=== PATIENT | female | born 1930 | race Caucasian/White ===

== ENCOUNTER 2017-09-24 20:47 | Emergency (ER) | payer OTHER, MEDICARE, MEDICAID ==
--- NOTE | 2017-09-24 20:59 | DR.GENAD ---
HPI - HPI Comment HPI Comment: HERE VIA EMS FOR AMS. PATIENT WAS WEAK AT HOME AND NOT TAKING MEDS. NO TRAUMA REPORTED. NO FEVER. NO V/D. HER DAUGHTER IS IN ED WITH PATIENT. - Complaint/Symptoms Chief Complaint Doctors Comments: ALTERED MENTAL STATUS. - Nurses notes reviewed Nurses Notes Review: Yes - Source History Provided: EMS - Mode of Arrival Mode of Arrival: Stretcher - Timing Came on: Suddenly - Duration Duration: Constant Duration: Hours - Severity Severity: Moderate ROS - Review of Systems Constitutional: No Symptoms Reported Eyes: No Symptoms Reported ENTM: No Symptoms Reported Respiratoy: No Symptoms Reported Cardiovascular: No Symptoms Reported Gastrointestinal/Abdominal: No Symptoms Reported Genitourinary: No Symptoms Reported Neurological: No Symptoms Reported Musculoskeletal: No Symptoms Reported Integumentary: No Symptoms Reported Hematologic/Lymphatic: No Symptoms Reported Endocrine: No Symptoms Reported All Other Systems: Reviewed and Negative PE - Vital Signs Vitals: Temperature 99.2 F Pulse Rate [Left Radial] 90 Pulse Rate 89 Respiratory Rate 18 Blood Pressure [Left Arm] 155/62 Blood Pressure 125/57 O2 Sat by Pulse Oximetry 97 - General Limitations: No Limitations General Appearance: Alert - Head Head Exam: Normal Inspection - Eyes Eye exam: Normal Appearance - ENT ENT Exam: Normal External Ear Exam External Ear Exam: Normal External Inspection TM/Canal Exam: Bilateral Normal Nose Exam: Normal Nose Exam Mouth Exam: Normal Inspection Throat Exam: Normal Inspection - Neck Neck Exam: Normal Inspection - Chest Chest Inspection: Symmetric Chest Wall Rise - Respiratory Respiratory Exam: Normal Lung Sounds Bilat Respiratory Exam: Bilateral Clear to Auscultation - Cardiovascular Cardiovascular Exam: Regular Rate, Normal Rhythm, Normal Heart Sounds - Abdominal Exam Abdominal Exam: Normal Bowel Sounds, Soft. negative: Tenderness - Extremities Extremities Exam: Normal Inspection - Back Back Exam: Normal Inspection - Neurologic Neurological Exam: Alert, Oriented X3 - Psychiatric Psychiatric Exam: Normal Affect, Normal Mood - Skin Skin Exam: Normal Color MDM - Additional Information Additional Information Obtained From: Family - Differential Diagnosis Differential Diagnosis: AMS, CVA, UTI, DEHYDRATION, AR, PNEUMOANIA Course - Treatment Treatment: SEE ORDERS. MENTAL STATUS IMPROVE WITH HYDRATION. - Education/Counseling Education/Counseling: Patient, Family, Education Educated On: Diagnosis, Needs for Follow Up ROR - Labs Reviewed Laboratory Results Reviewed?: Yes Result Diagrams: 09/24/17 21:27 09/24/17 21:27 Laboratory: WBC 8.3 X10^3/uL (3.6-10.0) 09/24/17 21: RBC 3.26 X10^6/uL (3.5-5.4) L 09/24/17 21: Hgb 10.4 g/dL (12.0-16.0) L 09/24/17 21: Hct 30.5 % (36.0-47.0) L 09/24/17: MCV 93.6 fL (80.0-100.0) 09/24/17: MCH 31.8 pg (27.0-34.0) 09/24/17: MCHC 33.9 g/dL (33.0-35.0) 09/24/17: RDW 14.3 % (11.6-16.5) 09/24/17: Plt Count 219 X10^3/uL (150.0-450.0) 09/24/17: MPV 7.8 fL (7.4-11.0) 09/24/17: Neut % 74.2 % (42.0-75.0) 09/24/17: Lymph % 14.7 % (21.0-51.0) L 09/24/17: Ritchie % 8.0 % (0.0-13.0) 09/24/17: Eos % 2.2 % (0.9-2.9) 09/24/17: Baso % 0.9 % (0.2-1.0) 09/24/17: Neut # 6.2 x10^3/uL (2.2-4.8) H 09/24/17: Lymph # 1.2 X10^3/uL (1.3-2.9) L 09/24/17: Ritchie # 0.7 x10^3/uL (0.3-0.8) 09/24/17 21: Eos # 0.2 x10^3/uL (0.0-0.2) 09/24/17 21: Baso # 0.1 X10^3/uL (0.0-0.1) 11/15/17 21:27 Absolute Nucleated RBC 0.0 /100WBC 09/24/17 21:27 Sodium 144 mmol/L (136-145) 09/24/17 21:27 Corrected Sodium 145 mmol/L (136-145) 09/24/17 21:27 Potassium 3.3 mmol/L (3.5-5.1) L 09/24/17 21:27 Chloride 107 mmol/L (98-107) 09/24/17 21:27 Carbon Dioxide 26.2 mmol/L (21-32) 09/24/17 21:27 BUN 20 mg/dL (7-18) H 09/24/17 21:27 Creatinine 1.84 mg/dL (0.55-1.02) H 09/24/17 21:27 Est GFR (MDRD) Af Amer 33 (>60) L 09/24/17 21:27 Est GFR (MDRD) Non-Af 28 (>60) L 09/24/17 21:27 Glucose 143 mg/dL (65-99) H 09/24/17 21:27 Calcium 9.0 mg/dL (8.5-10.1) 09/24/17 21:27 Corrected Calcium 9.7 mg/dL (8.5-10.1) 09/24/17 21:27 Total Bilirubin 0.30 mg/dL (0.2-1.0) 09/24/17 21:27 AST 14 Units/L (15-37) L 09/24/17 21:27 ALT 14 Units/L (12-78) 09/24/17 21:27 Alkaline Phosphatase 62 Units/L (46-116) 09/24/17 21:27 Creatine Kinase 47 Units/L (26-192) 09/24/17 21:27 CK-MB (CK-2) < 1.0 ng/mL (0-4.0) 09/24/17 21: CK/CKMB % Calc 2.1 % (<4) 09/24/17 21: Troponin I < 0.02 ng/mL (0-1.5) 09/24/17 21:27 Total Protein 6.5 g/dL (6.4-8.2) 09/24/17 21: Albumin 3.1 g/dL (3.4-5.0) L 09/24/17 21:27 Globulin 3.4 g/dL (2.5-4.5) 09/24/17 21: Albumin/Globulin Ratio 0.9 Ratio (1.1-2.1) L 09/24/17: Specimen Type Catherized urine 09/24/17 21:03 Urine Color Yellow (YELLOW) 09/24/17 21: Urine Appearance Slightly hazy (CLEAR) 09/24/17 21: Urine pH 5.0 (5.0 - 8.0) 09/24/17 21: Ur Specific [place] 1.020 (1.000-1.030) 09/24/17 21: Urine Protein 3+ (NEGATIVE) 09/24/17 21: Urine Glucose (UA) Negative (NEGATIVE) 09/24/17 21: Urine Ketones 1+ (NEGATIVE) 09/24/17 21: Urine Occult Blood 2+ (NEGATIVE) 09/24/17 21: Urine Nitrite Negative (NEGATIVE) 09/24/17 21: Urine Bilirubin 1+ (NEGATIVE) 09/24/17 21: Urine Urobilinogen 1+ (NORMAL) 09/24/17 21: Ur Leukocyte Esterase 1+ (NEGATIVE) 09/24/17 21: Urine RBC 2-4 /HPF (NEGATIVE) 09/24/17 21: Urine WBC 10-15 /HPF (NEGATIVE) 09/24/17 21: Ur Squamous Epith Cells Few /HPF (NEGATIVE) 09/24/17 21: Amorphous Sediment 1+ /HPF (NEGATIVE) 09/24/17 21: Urine Bacteria 1+ /HPF (NEGATIVE) 09/24/17 21: Ur Culture Indicated? Yes/culture set up 09/24/17 21: Urine Opiates Screen Negative (NEG=<300) 09/24/17 21: Urine Methadone Screen Negative (NEG=<300) 09/24/17 21: Ur Barbiturates Screen Negative (NEG=<200) 09/24/17 21: Ur Phencyclidine Scrn Negative (NEG=<25) 09/24/17 21: Ur Amphetamines Screen Negative (NEG=<1000) 09/24/17 21: U Benzodiazepines Scrn Positive (NEG=<200) A 09/24/17 21: Urine Cocaine Screen Negative (NEG=<300) 09/24/17 21:03 U Marijuana (THC) Screen Negative (NEG=<50) 09/24/17 21:03 - XRAY XRAY Interpreted by: Radiologist XRAY Findings: REPORT DISCUSS WITH DAUGHTER AND PATIENT. 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
[2017-09-24 21:11] VITALS: BMI 20.9
[2017-09-24 21:12] LABS: BILIRUBIN,URINE 1+ (NEGATIVE); BLOOD/HEMOGLOBIN,URINE 2+ (NEGATIVE); GLUCOSE, URINE NEGATIVE (NEGATIVE); KETONES,URINE 1+ (NEGATIVE); LEUKOCYTE ESTERASE ,URINE 1+ (NEGATIVE); NITRITES,URINE NEGATIVE (NEGATIVE); PROTEIN,URINE 3+ (NEGATIVE); UROBILINOGEN,URINE 1+ (NORMAL)
[2017-09-24 21:19] LABS: AMORPHOUS SEDIMENT,UR 1+ /HPF (NEGATIVE); APPEARANCE,URINE SLIGHTLY HAZY (CLEAR); BACTERIA,URINE 1+ /HPF (NEGATIVE); COLOR,URINE YELLOW (YELLOW); SQUAMOUS EPITHELIAL CELL,UR FEW /HPF (NEGATIVE)
[2017-09-24 21:36] LABS: BASOPHILS # (AUTO) 0.1 X10^3/uL (0.0-0.1); BASOPHILS % (AUTO) 0.9 % (0.2-1.0); EOSINOPHILS # (AUTO) 0.2 x10^3/uL (0.0-0.2); EOSINOPHILS % (AUTO) 2.2 % (0.9-2.9); HEMATOCRIT 30.5 % (36.0-47.0); HEMOGLOBIN 10.4 g/dL (12.0-16.0); LYMPHOCYTES # (AUTO) 1.2 X10^3/uL (1.3-2.9); LYMPHOCYTES % (AUTO) 14.7 % (21.0-51.0); MEAN CORPUSCULAR HEMOGLOBIN 31.8 pg (27.0-34.0); MEAN CORPUSCULAR HGB CONC 33.9 g/dL (33.0-35.0); MEAN CORPUSCULAR VOLUME 93.6 fL (80.0-100.0); MEAN PLATELET VOLUME 7.8 fL (7.4-11.0); MONOCYTES # (AUTO) 0.7 x10^3/uL (0.3-0.8); NEUTROPHILS # (AUTO) 6.2 x10^3/uL (2.2-4.8); NEUTROPHILS % (AUTO) 74.2 % (42.0-75.0); PLATELET COUNT 219 X10^3/uL (150.0-450.0); RED BLOOD COUNT 3.26 X10^6/uL (3.5-5.4); RED CELL DISTRIBUTION WIDTH 14.3 % (11.6-16.5); WHITE BLOOD COUNT 8.3 X10^3/uL (3.6-10.0)
[2017-09-24 21:53] LABS: BLOOD UREA NITROGEN 20 mg/dL (7-18); CARBON DIOXIDE 26.2 mmol/L (21-32); CHLORIDE 107 mmol/L (98-107); COR NA(FOR HYPERGLY) 145 mmol/L (136-145); CREATININE 1.84 mg/dL (0.55-1.02); SODIUM 144 mmol/L (136-145); TROPONIN I < 0.02 ng/mL (0-1.5); eGFR BLACK RACES 33 (>60); eGFR NON BLACK RACES 28 (>60)
[2017-09-24 21:58] LABS: ALANINE AMINOTRANSFERASE 14 Units/L (12-78); ALBUMIN 3.1 g/dL (3.4-5.0); ALKALINE PHOSPHATASE 62 Units/L (46-116); ASPARTATE AMINO TRANSFERASE 14 Units/L (15-37); CKMB % 2.1 % (<4); COR CA(FOR HYPOALB) 9.7 mg/dL (8.5-10.1); CREATINE KINASE 47 Units/L (26-192); CREATINE KINASE MB < 1.0 ng/mL (0-4.0); TOTAL PROTEIN 6.5 g/dL (6.4-8.2)
--- NOTE | 2017-09-24 22:13 | CT ---
HISTORY: Altered mental status, weakness Study: CT. Comparison: None Technique: Serial axial images were obtained from the skullbase to the vertex without infusion of IV contrast. Findings: The ventricles, sulci, and cisterns demonstrate an appearance consistent with a wjoz-zh-whzticle degr ee of generalized atrophy. Patchy areas of decreased attenuation within the periventricular, subcorti lauren, and subinsular white matter suggest changes of chronic small vessel ischemic disease. Images dem onstrate partial opacification and mucosal thickening of the ethmoid air cells. If symptoms or clinic al concern persist recommend continued follow-up for further evaluation. IMPRESSION: No evidence of acute intracranial abnormality is identified. Mild to moderate generalized atrophy with findings consistent with changes of chronic small vessel is chemic disease. Ethmoid sinus disease as noted above. Reported By:
[2017-09-24] MEDS ORDERED: LEVAQUIN PREMIX IV 500 MG 500 MG/100 ML BAG IV ONE ×2 (22:34→22:41)
[2017-09-24] MEDS ORDERED: POTASSIUM CHLORIDE LIQ 20 MEQ UDC ONE (22:45)
[2017-09-24] MEDS ORDERED: POTASSIUM CHLORIDE LIQ 20 MEQ UDC PO ONE (22:51)
[2017-09-24] MEDS ORDERED: NS + KCL 40 MEQ/L 1,000 ML IV SCH (23:00)
--- NOTE | 2017-09-24 23:34 | RAD ---
Chest, one view Indication: Altered mental status, weakness Comparison: None Findings: Cardiac silhouette size is within normal limits, with tortuosity of the thoracic aorta. The re is linear scarring versus subsegmental atelectasis of the left mid lung. There are chronic interst itial changes of both lungs. No dense infiltrate or large effusion. Impression: No acute chest process. Reported By:
[2017-09-24] MEDS ORDERED: NS 1000 ML 1,000 ML IV ONE (23:40)
[2017-09-24] MEDS ORDERED: NS 1000 ML 1,000 ML ONE (23:40)
[2017-09-25 00:41] VITALS: BP 155/62
== END 2017-09-25 00:40 | disposition home or self-care (01) ==
LOC: ER 20:56
DX: J32.2 Chronic ethmoidal sinusitis (principal); N34.2 Other urethritis; E86.0 Dehydration
CPT/HCPCS: 36415; 70450; 71010; 80053; 80307; 81001; 82550; 82553; 84484; 85025; 87086; 93005; 93010; 96365; 96374; 99283; G0434; J1956

== ENCOUNTER 2018-01-10 06:44 | Observation (INO) | payer OTHER, MEDICARE, MEDICAID ==
--- NOTE | 2018-01-10 06:54 | DR.GENAD ---
HPI - Complaint/Symptoms Chief Complaint Doctors Comments: Patient brought in by EMS states she woke up family complaining of her throat hurting and the found a spray bottle of Menasha Lenin next to her bed with the top ajar and they are not sure if she drank any or not. States the patient is Hospice for Alzheimers and family wanted her brought to this hospital. EMS states patient was in the bathroom when they got there and they did not smell any ordor to her breath. EMS state her glucose was 129. States she has a history of Alzheimers, diabetes and hypertension. NO family members here presently. Daughter here and states she heard the patient hit the floor about 5:30 am and noticed she had a cough and talked hoarse when she was speaking and they helped her to the bathroom and called EMS because she had gone to the kitchen and open the ketcup, honey and they notice the top of spray bottle of Menasha lenin. States they did not see her drink the Menasha Lenin but that was the only chemical in the kitchen. States she has been on hospice for three years. She denies head trauma but states she has been falling a lot recently two times two weeks ago. - Nurses notes reviewed Nurses Notes Review: Yes - Source History Provided: Patient, EMS - Mode of Arrival Mode of Arrival: EMS - Timing Came on: On Awakening - Duration Duration: Intermittent How lon Duration: Hours - Location Location: throat pain - Severity Severity: Mild - Modifying Factors Worsens:: nothing Improves:: nothing PMH - PMH Past Medical History: Alzheimers, Anxiety, Dementia, Depression, Diabetes, GERD , Hypertension Past Surgical History: Yes Surgical History: Cholecystectomy - Social History Do you use any recreational Drugs:: No ROS - Review of Systems Constitutional: No Symptoms Reported, Weakness Eyes: No Symptoms Reported ENTM: No Symptoms Reported, Throat Pain Respiratoy: No Symptoms Reported, Non-Productive Cough Cardiovascular: No Symptoms Reported. negative: See HPI, Chest Pain, Edema, Palpitations, Syncope, Cyanosis, Skin Mottling, Other Gastrointestinal/Abdominal: No Symptoms Reported Genitourinary: No Symptoms Reported Neurological: No Symptoms Reported Musculoskeletal: No Symptoms Reported Integumentary: No Symptoms Reported Hematologic/Lymphatic: No Symptoms Reported Endocrine: No Symptoms Reported Psychiatric: No Symptoms Reported. negative: See HPI, Anxiety, Depression, Hallucinations, Excessive crying, Suicidal, Other PE - Vital Signs Vitals: Temperature 98.5 F Pulse Rate [Apical] 82 Pulse Rate 94 Respiratory Rate 19 Blood Pressure [Right Arm] 154/70 Blood Pressure [Left Arm] 155/62 Blood Pressure 195/86 O2 Sat by Pulse Oximetry 97 - General Limitations: Language Barrier, Altered Mental Status (Alzheimers) General Appearance: Alert, In No Apparent Distress - Head Head Exam: Normal Inspection, Atraumatic, Normocephalic - Eyes Eye exam: Normal Appearance, PERRL, EOMI. negative: Scleral Icterus, Conjunctival Injection, Nystagmus, Miosis, Mydrasis, Periorbital Swelling, Periorbital Tenderness, Other - ENT ENT Exam: Normal Exam, Normal Oropharynx, Normal External Ear Exam, Mucous Membranes Moist, TM's Normal Bilaterally. negative: Mucous Membranes Dry ( slight erythema posterior pharynx) External Ear Exam: Normal External Inspection TM/Canal Exam: Bilateral Normal Nose Exam: Normal Nose Exam Mouth Exam: Normal Inspection Throat Exam: Normal Inspection - Neck Neck Exam: Normal Inspection, Full ROM, Trachea Midline - Chest Chest Inspection: Normal Inspection, Symmetric Chest Wall Rise - Respiratory Respiratory Exam: Normal Lung Sounds Bilat Respiratory Exam: Bilateral Clear to Auscultation - Cardiovascular Cardiovascular Exam: Regular Rate, Normal Rhythm, Normal Heart Sounds - Abdominal Exam Abdominal Exam: Normal Inspection, Normal Bowel Sounds, Soft Abdominal Tenderness: negative: RUQ, RLQ, LUQ, LLQ, Epigastrium, Suprapubic, Diffuse, Mild, Moderate, Severe, Other - Extremities Extremities Exam: Normal Inspection, Full ROM, Normal Capillary Refill. negative: Tenderness, Edema, Joint Swelling, Calf Tenderness, Other - Back Back Exam: Normal Inspection, Full ROM - Neurologic Neurological Exam: Alert, CN II-XII Intact, Reflexes Normal. negative: Oriented X3 (orientated to name), Normal Gait (gait not tested) - Psychiatric Psychiatric Exam: Normal Affect, Normal Mood - Skin Skin Exam: Warm, Dry, Intact, Normal Color Course - Consultation Called: :02 Call Returned: 09:10 (Dr. Mares to admit) - Education/Counseling Education/Counseling: Family Educated On: Treatment, Diagnosis, Needs for Follow Up ROR - Labs Reviewed Laboratory Results Reviewed?: Yes (all labs and x-ray results reviewed and discussed with family) Result Diagrams: 01/10/18 07:00 01/10/18 07:00 Laboratory: WBC 12.3 X10^3/uL (3.6-10.0) H 01/10/18 07:00 RBC 3.89 X10^6/uL (3.5-5.4) 01/10/18 07:00 Hgb 12.1 g/dL (12.0-16.0) 01/10/18 07:00 Hct 36.2 % (36.0-47.0) 01/10/18 07:00 MCV 93.0 fL (80.0-100.0) 01/10/18 07:00 MCH 31.2 pg (27.0-34.0) 01/10/18 07:00 MCHC 33.6 g/dL (33.0-35.0) 01/10/18 07:00 RDW 14.6 % (11.6-16.5) 01/10/18 07:00 Plt Count 267 X10^3/uL (150.0-450.0) 01/10/18 07:00 MPV 8.5 fL (7.4-11.0) 01/10/18 07:00 Neut % 76.9 % (42.0-75.0) H 01/10/18 07:00 Lymph % 14.7 % (21.0-51.0) L 01/10/18 07:00 [place] % 6.7 % (0.0-13.0) 01/10/18 07:00 Eos % 0.9 % (0.9-2.9) 01/10/18 07:00 Baso % 0.8 % (0.2-1.0) 01/10/18 07:00 Neut # 9.5 x10^3/uL (2.2-4.8) H 01/10/18 07:00 Lymph # 1.8 X10^3/uL (1.3-2.9) 01/10/18 07:00 [place] # 0.8 x10^3/uL (0.3-0.8) 01/10/18 07:00 Eos # 0.1 x10^3/uL (0.0-0.2) 01/10/18 07:00 Baso # 0.1 X10^3/uL (0.0-0.1) 01/10/18 07:00 Absolute Nucleated RBC 0.0 /100WBC 01/10/18 07:00 INR Target Range - 01/10/18 07:00 INR 0.96 (0.8-1.3) 01/10/18 07:00 PTT 24.9 SECONDS (22.9-36.5) 01/10/18 07:00 PTT Comment - 01/10/18 07:00 Sodium 142 mmol/L (136-145) 01/10/18 07:00 Corrected Sodium 143 mmol/L (136-145) 01/10/18 07:00 Potassium 4.1 mmol/L (3.5-5.1) 01/10/18 07:00 Chloride 104 mmol/L (98-107) 01/10/18 07:00 Carbon Dioxide 26.2 mmol/L (21-32) 01/10/18 07:00 BUN 37 mg/dL (7-18) H 01/10/18 07:00 Creatinine 1.32 mg/dL (0.55-1.02) H 01/10/18 07:00 Est GFR (MDRD) Af Amer 49 (>60) L 01/10/18 07:00 Est GFR (MDRD) Non-Af 41 (>60) L 01/10/18 07:00 Glucose 143 mg/dL (65-99) H 01/10/18 07:00 Calcium 9.1 mg/dL (8.5-10.1) 01/10/18 07:00 Corrected Calcium TNP 01/10/18 07:00 Magnesium 1.8 mg/dL (1.7-2.9) 01/10/18 07:00 Total Bilirubin 0.30 mg/dL (0.2-1.0) 01/10/18 07:00 AST 18 Units/L (15-37) 01/10/18 07:00 ALT 29 Units/L (12-78) 01/10/18 07:00 Alkaline Phosphatase 60 Units/L (46-116) 01/10/18 07:00 Creatine Kinase 88 Units/L (26-192) 01/10/18 07:00 CK-MB (CK-2) 1.0 ng/mL (0-4.0) 01/10/18 07:00 CK/CKMB % Calc 1.1 % (<4) 01/10/18 07:00 Troponin I < 0.02 ng/mL (0-1.5) 01/10/18 07:00 Total Protein 7.9 g/dL (6.4-8.2) 01/10/18 07:00 Albumin 4.0 g/dL (3.4-5.0) 01/10/18 07:00 Globulin 3.9 g/dL (2.5-4.5) 01/10/18 07:00 Albumin/Globulin Ratio 1.0 Ratio (1.1-2.1) L 01/10/18 07:00 Specimen Type Catherized urine 01/10/18 08:19 Urine Color Yellow (YELLOW) 01/10/18 08:19 Urine Appearance Slightly hazy (CLEAR) 01/10/18 08:19 Urine pH 5.0 (5.0 - 8.0) 01/10/18 08:19 Ur Specific [place] 1.015 (1.000-1.030) 01/10/18 08:19 Urine Protein 3+ (NEGATIVE) 01/10/18 08:19 Urine Glucose (UA) Negative (NEGATIVE) 01/10/18 08:19 Urine Ketones Negative (NEGATIVE) 01/10/18 08:19 Urine Occult Blood 4+ (NEGATIVE) 01/10/18 08:19 Urine Nitrite Negative (NEGATIVE) 01/10/18 08:19 Urine Bilirubin Negative (NEGATIVE) 01/10/18 08:19 Urine Urobilinogen Normal (NORMAL) 01/10/18 08:19 Ur Leukocyte Esterase Negative (NEGATIVE) 01/10/18 08:19 Urine RBC 0 - 2 /HPF (NONE SEEN) 01/10/18 08:19 Urine WBC None seen /HPF (NONE SEEN) 01/10/18 08:19 Ur Squamous Epith Cells Rare /HPF (NEGATIVE) 01/10/18 08:19 Amorphous Sediment 2+ /HPF (NEGATIVE) 01/10/18 08:19 Urine Bacteria Negative /HPF (NEGATIVE) 01/10/18 08:19 Ur Culture Indicated? No/not indicated 01/10/18 08:19 Urine Opiates Screen Negative (NEG=<300) 01/10/18 08:19 Urine Methadone Screen Negative (NEG=<300) 01/10/18 08:19 Ur Barbiturates Screen Negative (NEG=<200) 01/10/18 08:19 Ur Phencyclidine Scrn Negative (NEG=<25) 01/10/18 08:19 Ur Amphetamines Screen Negative (NEG=<1000) 01/10/18 08:19 U Benzodiazepines Scrn Positive (NEG=<200) A 01/10/18 08:19 Urine Cocaine Screen Negative (NEG=<300) 01/10/18 08:19 U Marijuana (THC) Screen Negative (NEG=<50) 01/10/18 08:19 S. pyogenes (TEM-PCR) Not detected (NOT DETECT) 01/10/18 07:08 - XRAY XRAY Interpreted by: Radiologist (CXR: No acute cardiopulmonary disease) - EKG Rate: 92 Elizabeth: Normal Rhythm: NSR Block: None Hypertrophy: None ST: Nonsp - Diagnosis Discharge Problem: Possible ingestion of Menasha lenin, Diabetes mellitus, Essential hypertension Alzheimer's dementia Qualifiers: Alzheimer's disease onset: late-onset - Discharge Plan Disposition: ADMITTED INPATIENT Condition: Stable - Follow ups/Referrals Follow ups/Referrals: NFD,None [Primary Care Provider] - 3 days - Instructions
[2018-01-10 07:18] LABS: BASOPHILS # (AUTO) 0.1 X10^3/uL (0.0-0.1); BASOPHILS % (AUTO) 0.8 % (0.2-1.0); EOSINOPHILS # (AUTO) 0.1 x10^3/uL (0.0-0.2); EOSINOPHILS % (AUTO) 0.9 % (0.9-2.9); HEMATOCRIT 36.2 % (36.0-47.0); HEMOGLOBIN 12.1 g/dL (12.0-16.0); LYMPHOCYTES # (AUTO) 1.8 X10^3/uL (1.3-2.9); LYMPHOCYTES % (AUTO) 14.7 % (21.0-51.0); MEAN CORPUSCULAR HEMOGLOBIN 31.2 pg (27.0-34.0); MEAN CORPUSCULAR HGB CONC 33.6 g/dL (33.0-35.0); MEAN PLATELET VOLUME 8.5 fL (7.4-11.0); MONOCYTES # (AUTO) 0.8 x10^3/uL (0.3-0.8); MONOCYTES % (AUTO) 6.7 % (0.0-13.0); NEUTROPHILS # (AUTO) 9.5 x10^3/uL (2.2-4.8); NEUTROPHILS % (AUTO) 76.9 % (42.0-75.0); PLATELET COUNT 267 X10^3/uL (150.0-450.0); RED BLOOD COUNT 3.89 X10^6/uL (3.5-5.4); RED CELL DISTRIBUTION WIDTH 14.6 % (11.6-16.5); WHITE BLOOD COUNT 12.3 X10^3/uL (3.6-10.0)
[2018-01-10 07:26] LABS: BLOOD UREA NITROGEN 37 mg/dL (7-18); CALCIUM 9.1 mg/dL (8.5-10.1); CARBON DIOXIDE 26.2 mmol/L (21-32); CHLORIDE 104 mmol/L (98-107); COR NA(FOR HYPERGLY) 143 mmol/L (136-145); CREATININE 1.32 mg/dL (0.55-1.02); SODIUM 142 mmol/L (136-145); TROPONIN I < 0.02 ng/mL (0-1.5); eGFR BLACK RACES 49 (>60); eGFR NON BLACK RACES 41 (>60)
[2018-01-10 07:31] LABS: ALANINE AMINOTRANSFERASE 29 Units/L (12-78); ALKALINE PHOSPHATASE 60 Units/L (46-116); ASPARTATE AMINO TRANSFERASE 18 Units/L (15-37); CKMB % 1.1 % (<4); CREATINE KINASE 88 Units/L (26-192); MAGNESIUM 1.8 mg/dL (1.7-2.9); TOTAL PROTEIN 7.9 g/dL (6.4-8.2)
--- NOTE | 2018-01-10 08:21 | RAD ---
HISTORY: Found unresponsive Study: Single-view chest Comparison: 09/24/2017 Findings: The trachea is midline. The cardiac silhouette is unremarkable. The lungs are clear without focal i nfiltrate or effusion. The bony thorax is unremarkable. IMPRESSION: 1. No acute cardiopulmonary disease. Reported By:
[2018-01-10 08:33] LABS: BILIRUBIN,URINE NEGATIVE (NEGATIVE); BLOOD/HEMOGLOBIN,URINE 4+ (NEGATIVE); GLUCOSE, URINE NEGATIVE (NEGATIVE); KETONES,URINE NEGATIVE (NEGATIVE); LEUKOCYTE ESTERASE ,URINE NEGATIVE (NEGATIVE); NITRITES,URINE NEGATIVE (NEGATIVE); PROTEIN,URINE 3+ (NEGATIVE); UROBILINOGEN,URINE NORMAL (NORMAL)
[2018-01-10 08:46] LABS: APPEARANCE,URINE SLIGHTLY HAZY (CLEAR); COLOR,URINE YELLOW (YELLOW)
[2018-01-10 08:51] LABS: AMORPHOUS SEDIMENT,UR 2+ /HPF (NEGATIVE); BACTERIA,URINE NEGATIVE /HPF (NEGATIVE); RBC,URINE 0 - 2 /HPF (NONE SEEN); SQUAMOUS EPITHELIAL CELL,UR RARE /HPF (NEGATIVE)
[2018-01-10] MEDS ORDERED: HumuLIN R SC PRN (09:35)
[2018-01-10] MEDS ORDERED: HumuLIN R SUBCUT PRN (09:35)
[2018-01-10] MEDS: NS 1000 ML 1,000 ML IV SCH (09:53)
[2018-01-10 16:41] VITALS: BMI 21.8
[2018-01-10] MEDS ORDERED: RESTORIL CAP 15 MG PO PRN (18:55)
[2018-01-10] MEDS ORDERED: RESTORIL CAP 30 MG PO PRN (19:24)
[2018-01-10] MEDS ORDERED: ATIVAN TAB 0.5 MG PO PRN (19:28)
[2018-01-10] MEDS ORDERED: NORCO 5/325 MG TAB PO PRN (19:29)
[2018-01-10] MEDS ORDERED: LASIX PO PRN (20:06)
[2018-01-10] MEDS ORDERED: GLUCOPHAGE ONE (20:32)
[2018-01-10] MEDS: GLUCOPHAGE PO SCH (20:56)
[2018-01-10] MEDS: ARICEPT TAB 10 MG PO SCH ×3 (20:56→21:05)
[2018-01-10] MEDS: XANAX PO PRN (20:57)
[2018-01-10] MEDS: PROTONIX INJ 40 MG VIAL IVP SCH (20:58)
[2018-01-11] MEDS: XANAX PO PRN (03:17)
[2018-01-11] MEDS: NS 1000 ML 1,000 ML IV SCH ×2 (04:43→06:36)
[2018-01-11 06:43] LABS: BASOPHILS # (AUTO) 0.1 X10^3/uL (0.0-0.1); BASOPHILS % (AUTO) 0.7 % (0.2-1.0); EOSINOPHILS # (AUTO) 0.3 x10^3/uL (0.0-0.2); EOSINOPHILS % (AUTO) 2.7 % (0.9-2.9); HEMATOCRIT 31.2 % (36.0-47.0); HEMOGLOBIN 10.6 g/dL (12.0-16.0); LYMPHOCYTES % (AUTO) 20.6 % (21.0-51.0); MEAN CORPUSCULAR HEMOGLOBIN 31.8 pg (27.0-34.0); MEAN CORPUSCULAR VOLUME 93.4 fL (80.0-100.0); MEAN PLATELET VOLUME 8.6 fL (7.4-11.0); MONOCYTES # (AUTO) 0.8 x10^3/uL (0.3-0.8); MONOCYTES % (AUTO) 8.4 % (0.0-13.0); NEUTROPHILS # (AUTO) 6.7 x10^3/uL (2.2-4.8); NEUTROPHILS % (AUTO) 67.6 % (42.0-75.0); PLATELET COUNT 228 X10^3/uL (150.0-450.0); RED BLOOD COUNT 3.34 X10^6/uL (3.5-5.4); RED CELL DISTRIBUTION WIDTH 14.5 % (11.6-16.5); WHITE BLOOD COUNT 9.9 X10^3/uL (3.6-10.0)
[2018-01-11 07:27] LABS: ALANINE AMINOTRANSFERASE 24 Units/L (12-78); ALKALINE PHOSPHATASE 59 Units/L (46-116); ASPARTATE AMINO TRANSFERASE 14 Units/L (15-37); BLOOD UREA NITROGEN 22 mg/dL (7-18); CALCIUM 8.4 mg/dL (8.5-10.1); CARBON DIOXIDE 26.2 mmol/L (21-32); CHLORIDE 107 mmol/L (98-107); COR CA(FOR HYPOALB) 9.2 mg/dL (8.5-10.1); CREATININE 1.25 mg/dL (0.55-1.02); SODIUM 143 mmol/L (136-145); TOTAL PROTEIN 6.6 g/dL (6.4-8.2); eGFR BLACK RACES 52 (>60); eGFR NON BLACK RACES 43 (>60)
[2018-01-11] MEDS ORDERED: JANUVIA PO SCH (09:00)
[2018-01-11] MEDS ORDERED: NORVASC TAB 10 MG PO SCH (09:00)
[2018-01-11] MEDS ORDERED: LOTENSIN TAB 10 MG PO SCH (09:00)
[2018-01-11] MEDS ORDERED: GLUCOPHAGE ONE (09:23)
[2018-01-11] MEDS: GLUCOPHAGE PO SCH (09:31)
[2018-01-11] MEDS: PROTONIX INJ 40 MG VIAL IVP SCH (09:31)
[2018-01-11 13:42] VITALS: BP 147/66
[2018-01-11] MEDS ORDERED: SNACK - Diabetic Appropriate PO SCH (20:00)
== END 2018-01-11 13:25 | disposition home or self-care (01) ==
LOC: ER 06:44 → MED/SURG 09:33 → ICU 12:09
PROVIDERS: ADMIT Internal Medicine; ATTEND Internal Medicine
DX: G30.8 Other Alzheimer's disease (principal); D72.828 Other elevated white blood cell count; R94.4 Abnormal results of kidney function studies; Z79.899 Other long term (current) drug therapy; E11.65 Type 2 diabetes mellitus with hyperglycemia; I10 Essential (primary) hypertension; R94.31 Abnormal electrocardiogram [ECG] [EKG]
CPT/HCPCS: 36415; 51701; 71045; 80053; 80307; 81001; 82550; 82553; 83735; 84484; 85025; 85610; 85730; 87651; 93005; 93010; 96365; 99284; A4216; A4222; C9113; G0378; G0434

== ENCOUNTER 2018-01-17 14:53 | Inpatient (IN) | payer OTHER, MEDICARE, MEDICAID ==
--- NOTE | 2018-01-17 16:04 | RAD ---
HISTORY: Fall Study: Three-view right hip Comparison: None Findings: There is a right femoral prosthesis noted in place. There is a lucency through the lateral aspect of the intertrochanteric compatible with a mildly displaced fracture which appears acute although no nathalia ors available for comparison. These femoral hardware appears intact. The bones are otherwise osteopen ic but no other fractures are seen. Changes are noted in the spine. IMPRESSION: 1. Acute appearing mildly displaced lateral intertrochanteric fracture as above. Reported By:
--- NOTE | 2018-01-17 16:29 | DR.GENAD ---
HPI - PCP Primary Care Physician: WILMAN - Complaint/Symptoms Chief Complaint Doctors Comments: Family states the patient was recently discharged from the hospital after [place] ingestion and fell two days ago around 4 am. States they called Hospice and they wanted to wait to see if patient was able to ambulate. States the patient was unable to walk and she had to help her to the bathroom and bed so she had her brought back for evaluation. She denies head trauma. Family denies head trauma or LOC. Chief Complaint:: FAMILY STATED THAT PATIENT WAS JUST DISCHARGED FROM THE HOSPITAL AND THAT PATIENT FELL OUT OF BED ABOUT 3 DAYS AGO AROUND 0430. - Nurses notes reviewed Nurses Notes Review: Yes - Source History Provided: Family Member - Mode of Arrival Mode of Arrival: Ambulatory - Timing Onset of Chief Complaint: 01/14/18 Came on: Suddenly - Duration Duration: Constant How lon Duration: Days - Location Location: right hip pain - Severity Severity: Moderate, Severe - Modifying Factors Worsens:: movement Improves:: nothing PMH - PMH Past Medical History: Yes Past Medical History: Alzheimers, Anxiety, Dementia, Depression, Diabetes, GERD , Hypertension Past Surgical History: Yes Surgical History: Cholecystectomy, Hysterectomy - Family History History of Family Medical Conditions: Yes Family Medical History: Diabetes Mellitus, Cancer, Coronary Artery Disease, Hypertension - Social History Type of Tobacco Use: None Does any household member use tobacco: No Alcohol Use: None Do you use any recreational Drugs:: No Lives With: Family Lives Where: Home - infectious screening In the last 2 months have you had wt loss of >10#?: NO Have you had fever, night sweats or hemotysis?: No Have you traveled outside the country in the last 6 months?: No Isolation: Standard ROS - Review of Systems Constitutional: No Symptoms Reported Eyes: No Symptoms Reported ENTM: No Symptoms Reported Respiratoy: No Symptoms Reported Cardiovascular: No Symptoms Reported. negative: See HPI, Chest Pain, Edema, Palpitations, Syncope, Cyanosis, Skin Mottling, Other Gastrointestinal/Abdominal: No Symptoms Reported. negative: See HPI, Abdominal Pain, Constipation, Diarrhea, Nausea, Vomiting, Food Intolerance, Other Genitourinary: No Symptoms Reported Neurological: No Symptoms Reported, Weakness, Problems Walking Musculoskeletal: No Symptoms Reported, Right, Hip Integumentary: No Symptoms Reported Hematologic/Lymphatic: No Symptoms Reported Endocrine: No Symptoms Reported Psychiatric: No Symptoms Reported PE - Vital Signs Vitals: Temperature 98.4 F Pulse Rate 76 Respiratory Rate 20 Blood Pressure [Right Arm] 147/66 Blood Pressure [Left Arm] 135/79 Blood Pressure 140/70 O2 Sat by Pulse Oximetry 95 - General Limitations: Altered Mental Status General Appearance: In Distress (moderate) - Head Head Exam: Normal Inspection, Atraumatic, Normocephalic - Eyes Eye exam: Normal Appearance, PERRL, EOMI. negative: Scleral Icterus, Conjunctival Injection, Nystagmus, Miosis, Mydrasis, Periorbital Swelling, Periorbital Tenderness, Other - ENT ENT Exam: Normal Exam, Normal Oropharynx, Normal External Ear Exam, Mucous Membranes Moist, TM's Normal Bilaterally External Ear Exam: Normal External Inspection TM/Canal Exam: Bilateral Normal Nose Exam: Normal Nose Exam Mouth Exam: Normal Inspection Throat Exam: Normal Inspection - Neck Neck Exam: Normal Inspection, Full ROM, Trachea Midline - Chest Chest Inspection: Normal Inspection - Respiratory Respiratory Exam: Normal Lung Sounds Bilat Respiratory Exam: Bilateral Clear to Auscultation - Cardiovascular Cardiovascular Exam: Regular Rate, Normal Rhythm, Normal Heart Sounds - Abdominal Exam Abdominal Exam: Normal Inspection, Normal Bowel Sounds, Soft Abdominal Tenderness: negative: RUQ, RLQ, LUQ, LLQ, Epigastrium, Suprapubic, Diffuse, Mild, Moderate, Severe, Other - Extremities Extremities Exam: Normal Inspection, Normal Capillary Refill. negative: Full ROM (left leg flexed) - Back Back Exam: Normal Inspection, Full ROM - Neurologic Neurological Exam: Alert, CN II-XII Intact, Reflexes Normal. negative: Oriented X3 (oriented to person), Normal Gait (gait) - Psychiatric Psychiatric Exam: Normal Affect, Normal Mood - Skin Skin Exam: Warm, Dry, Intact, Normal Color Course - Consultation Called: 18:16 Call Returned: 18:16 (Dr. Mares to admit) Consultation Comments: Dr. Cohn called and states he will see patient. Recommended Nance traction 5 lbs; anesthesia for epidural for pain control; anesthia for possible surgery in am. - Education/Counseling Education/Counseling: Family Educated On: Treatment, Diagnosis, Needs for Follow Up ROR - Labs Reviewed Laboratory Results Reviewed?: Yes (All labs and x-ray results reviewed and discussed with family) Result Diagrams: 01/17/18 16:35 01/17/18 16:35 Laboratory: WBC 6.4 X10^3/uL (3.6-10.0) 01/17/18 16:35 RBC 3.29 X10^6/uL (3.5-5.4) L 01/17/18 16:35 Hgb 10.4 g/dL (12.0-16.0) L 01/17/18 16:35 Hct 31.0 % (36.0-47.0) L 01/17/18 16:35 MCV 94.3 fL (80.0-100.0) 01/17/18 16:35 MCH 31.7 pg (27.0-34.0) 01/17/18 16:35 MCHC 33.6 g/dL (33.0-35.0) 01/17/18 16:35 RDW 14.4 % (11.6-16.5) 01/17/18 16:35 Plt Count 268 X10^3/uL (150.0-450.0) 01/17/18 16:35 MPV 8.0 fL (7.4-11.0) 01/17/18 16:35 Neut % 60.5 % (42.0-75.0) 01/17/18 16:35 Lymph % 25.1 % (21.0-51.0) 01/17/18 16:35 [place] % 9.3 % (0.0-13.0) 01/17/18 16:35 Eos % 4.3 % (0.9-2.9) H 01/17/18 16:35 Baso % 0.8 % (0.2-1.0) 01/17/18 16:35 Neut # 3.9 x10^3/uL (2.2-4.8) 01/17/18 16:35 Lymph # 1.6 X10^3/uL (1.3-2.9) 01/17/18 16:35 [place] # 0.6 x10^3/uL (0.3-0.8) 01/17/18 16:35 Eos # 0.3 x10^3/uL (0.0-0.2) H 01/17/18 16:35 Baso # 0.0 X10^3/uL (0.0-0.1) 01/17/18 16:35 Absolute Nucleated RBC 0.0 /100WBC 01/17/18 16:35 INR Target Range - 01/17/18 16:35 INR 1.09 (0.8-1.3) 01/17/18 16:35 PTT 26.4 SECONDS (22.9-36.5) 01/17/18 16:35 PTT Comment - 01/17/18 16:35 Sodium 142 mmol/L (136-145) 01/17/18 16:35 Corrected Sodium 143 mmol/L (136-145) 01/17/18 16:35 Potassium 4.0 mmol/L (3.5-5.1) 01/17/18 16:35 Chloride 107 mmol/L (98-107) 01/17/18 16:35 Carbon Dioxide 26.6 mmol/L (21-32) 01/17/18 16:35 BUN 25 mg/dL (7-18) H 01/17/18 16:35 Creatinine 1.44 mg/dL (0.55-1.02) H 01/17/18 16:35 Est GFR (MDRD) Af Amer 44 (>60) L 01/17/18 16:35 Est GFR (MDRD) Non-Af 37 (>60) L 01/17/18 16:35 Glucose 129 mg/dL (65-99) H 01/17/18 16:35 Calcium 8.4 mg/dL (8.5-10.1) L 01/17/18 16:35 Corrected Calcium 9.2 mg/dL (8.5-10.1) 01/17/18 16:35 Total Bilirubin 0.30 mg/dL (0.2-1.0) 01/17/18 16:35 AST 23 Units/L (15-37) 01/17/18 16:35 ALT 33 Units/L (12-78) 01/17/18 16:35 Alkaline Phosphatase 64 Units/L (46-116) 01/17/18 16:35 Total Protein 7.0 g/dL (6.4-8.2) 01/17/18 16:35 Albumin 3.0 g/dL (3.4-5.0) L 01/17/18 16:35 Globulin 4.0 g/dL (2.5-4.5) 01/17/18 16:35 Albumin/Globulin Ratio 0.8 Ratio (1.1-2.1) L 01/17/18 16:35 - XRAY XRAY Interpreted by: Radiologist (Right hip: Acute appearing mildly displaced lateral intertrochanteric fracture) - EKG Rate: 71 [place]: Normal Rhythm: NSR Block: None Hypertrophy: None ST: Nonsp - Diagnosis Discharge Problem: acute intertrochanteric fracture right , mildly displace right hip fracture, Alzheimer's dementia, Dehydration Diabetes mellitus Qualifiers: Diabetes mellitus type: type 2 - Discharge Plan Disposition: 09 ADMITTED INPATIENT Condition: Stable - Follow ups/Referrals Follow ups/Referrals: NFD,None [Primary Care Provider] - 3 days - Instructions
--- NOTE | 2018-01-17 16:43 | RAD ---
History: Fall with right hip pain. Study: Single-view chest. Comparison: 01/10/2018. Findings: The trachea is midline. The cardiac silhouette is within normal limits. The lungs are clear without focal consolidation, pleural effusion or pneumothorax. The bony thorax is grossly unremarkab le. Impression: No acute cardiopulmonary disease or concerning change compared with 01/10/2018. Reported By:
[2018-01-17 16:52] LABS: BASOPHILS % (AUTO) 0.8 % (0.2-1.0); EOSINOPHILS # (AUTO) 0.3 x10^3/uL (0.0-0.2); EOSINOPHILS % (AUTO) 4.3 % (0.9-2.9); HEMOGLOBIN 10.4 g/dL (12.0-16.0); LYMPHOCYTES # (AUTO) 1.6 X10^3/uL (1.3-2.9); LYMPHOCYTES % (AUTO) 25.1 % (21.0-51.0); MEAN CORPUSCULAR HEMOGLOBIN 31.7 pg (27.0-34.0); MEAN CORPUSCULAR HGB CONC 33.6 g/dL (33.0-35.0); MEAN CORPUSCULAR VOLUME 94.3 fL (80.0-100.0); MONOCYTES # (AUTO) 0.6 x10^3/uL (0.3-0.8); MONOCYTES % (AUTO) 9.3 % (0.0-13.0); NEUTROPHILS # (AUTO) 3.9 x10^3/uL (2.2-4.8); NEUTROPHILS % (AUTO) 60.5 % (42.0-75.0); PLATELET COUNT 268 X10^3/uL (150.0-450.0); RED BLOOD COUNT 3.29 X10^6/uL (3.5-5.4); RED CELL DISTRIBUTION WIDTH 14.4 % (11.6-16.5); WHITE BLOOD COUNT 6.4 X10^3/uL (3.6-10.0)
[2018-01-17 16:55] LABS: CALCIUM 8.4 mg/dL (8.5-10.1); CARBON DIOXIDE 26.6 mmol/L (21-32); COR CA(FOR HYPOALB) 9.2 mg/dL (8.5-10.1); CREATININE 1.44 mg/dL (0.55-1.02)
[2018-01-17] MEDS ORDERED: MORPHINE SULFATE INJ 2 MG INJ IVP ONE (17:20)
--- NOTE | 2018-01-17 17:31 | CT ---
HISTORY: Fall Study: CT pelvis without contrast Comparison: Plain film same day Technique: Multiple axial images of the pelvis without the administration of IV contrast. Sagittal and coronal reformats were performed and reviewed. Findings: Evaluation of the bony pelvis again demonstrates a mildly displaced fracture through the lateral aspe ct of the right intertrochanteric this extends involves the greater trochanter as well. The bones are osteopenic but no other fractures are seen. The right femoral prosthesis appears intact. Pelvic cavi ty is grossly unremarkable. IMPRESSION: 1. Right intertrochanteric fracture as above. Reported By:
[2018-01-17] MEDS ORDERED: MORPHINE SULFATE INJ 2 MG INJ ONE (17:42)
[2018-01-17] MEDS: NS 1000 ML 1,000 ML IV SCH (18:04)
[2018-01-17 18:16] LABS: BILIRUBIN,URINE NEGATIVE (NEGATIVE); BLOOD/HEMOGLOBIN,URINE 5+ (NEGATIVE); GLUCOSE, URINE NEGATIVE (NEGATIVE); KETONES,URINE 1+ (NEGATIVE); LEUKOCYTE ESTERASE ,URINE 2+ (NEGATIVE); NITRITES,URINE NEGATIVE (NEGATIVE); PROTEIN,URINE 2+ (NEGATIVE); UROBILINOGEN,URINE NORMAL (NORMAL)
[2018-01-17 18:22] LABS: APPEARANCE,URINE HAZY (CLEAR); COLOR,URINE YELLOW (YELLOW)
[2018-01-17] MEDS ORDERED: HumuLIN R SUBCUT PRN (18:27)
[2018-01-17 18:29] LABS: BACTERIA,URINE NEGATIVE /HPF (NEGATIVE); SQUAMOUS EPITHELIAL CELL,UR MODERATE /HPF (NEGATIVE)
[2018-01-17] MEDS ORDERED: MORPHINE SULFATE INJ 2 MG INJ IVP PRN (18:29)
[2018-01-17 18:30] LABS: AMORPHOUS SEDIMENT,UR 2+ /HPF (NEGATIVE); FINE GRANULAR CASTS,URINE RARE /LPF (NEGATIVE); HYALINE CASTS, URINE FEW /LPF (NEGATIVE)
[2018-01-17] MEDS ORDERED: NS 1000 ML 1,000 ML IV SCH (19:00)
[2018-01-17] MEDS: ARICEPT TAB 10 MG PO SCH (20:44)
[2018-01-17] MEDS: PROTONIX INJ 40 MG VIAL IVP SCH (20:44)
[2018-01-17] MEDS ORDERED: ATIVAN TAB 0.5 MG PO PRN (21:12)
[2018-01-17] MEDS ORDERED: RESTORIL CAP 30 MG PO PRN (21:15)
[2018-01-17] MEDS: XANAX PO SCH (21:27)
[2018-01-17] MEDS: DESYREL PO SCH (21:29)
[2018-01-17] MEDS: NORCO 5/325 MG TAB PO PRN (21:29)
[2018-01-18] MEDS: XANAX PO SCH ×4 (05:03→21:13)
[2018-01-18 06:13] LABS: BASOPHILS # (AUTO) 0.1 X10^3/uL (0.0-0.1); BASOPHILS % (AUTO) 0.7 % (0.2-1.0); EOSINOPHILS # (AUTO) 0.2 x10^3/uL (0.0-0.2); EOSINOPHILS % (AUTO) 2.8 % (0.9-2.9); HEMATOCRIT 28.6 % (36.0-47.0); HEMOGLOBIN 9.9 g/dL (12.0-16.0); LYMPHOCYTES # (AUTO) 1.5 X10^3/uL (1.3-2.9); LYMPHOCYTES % (AUTO) 21.2 % (21.0-51.0); MEAN CORPUSCULAR HEMOGLOBIN 32.2 pg (27.0-34.0); MEAN CORPUSCULAR HGB CONC 34.5 g/dL (33.0-35.0); MEAN CORPUSCULAR VOLUME 93.3 fL (80.0-100.0); MEAN PLATELET VOLUME 8.9 fL (7.4-11.0); MONOCYTES # (AUTO) 0.6 x10^3/uL (0.3-0.8); MONOCYTES % (AUTO) 8.6 % (0.0-13.0); NEUTROPHILS # (AUTO) 4.7 x10^3/uL (2.2-4.8); NEUTROPHILS % (AUTO) 66.7 % (42.0-75.0); PLATELET COUNT 234 X10^3/uL (150.0-450.0); RED BLOOD COUNT 3.07 X10^6/uL (3.5-5.4); RED CELL DISTRIBUTION WIDTH 14.4 % (11.6-16.5)
[2018-01-18 08:49] LABS: ALANINE AMINOTRANSFERASE 29 Units/L (12-78); ALBUMIN 2.9 g/dL (3.4-5.0); ALKALINE PHOSPHATASE 65 Units/L (46-116); ASPARTATE AMINO TRANSFERASE 18 Units/L (15-37); BLOOD UREA NITROGEN 18 mg/dL (7-18); CARBON DIOXIDE 27.8 mmol/L (21-32); CHLORIDE 105 mmol/L (98-107); COR CA(FOR HYPOALB) 8.9 mg/dL (8.5-10.1); CREATININE 1.13 mg/dL (0.55-1.02); SODIUM 142 mmol/L (136-145); TOTAL PROTEIN 6.9 g/dL (6.4-8.2); eGFR BLACK RACES 59 (>60); eGFR NON BLACK RACES 49 (>60)
[2018-01-18] MEDS ORDERED: PATIENT'S HOME MEDICATION (Benazepril Hcl [Lotensin] 20 MG) PO SCH (09:00)
[2018-01-18] MEDS ORDERED: LOVENOX INJ 30 MG SYR SC SCH (09:00)
[2018-01-18] MEDS: NS 1000 ML 1,000 ML IV SCH ×2 (09:15→20:45)
[2018-01-18] MEDS: LOTENSIN TAB 10 MG PO SCH ×2 (10:24→11:21)
[2018-01-18] MEDS: PROTONIX INJ 40 MG VIAL IVP SCH ×2 (10:24→11:22)
[2018-01-18] MEDS: NORVASC TAB 10 MG PO SCH ×2 (10:24→11:22)
--- NOTE | 2018-01-18 11:50 | DR.H&P ---
H&P - History & Physical for Day of: H&P Date: 01/17/18 - Chief Complaint Chief Complaint: FALL, LIMITED AMBULATION PER FAMILY - Allergies Allergies/Adverse Reactions: Allergies Allergy/AdvReac Type Severity Reaction Status Date / Time cephalexin [From Keflex] Allergy Verified 09/24/17 21:10 - History of Present Illness History of Present Illness: 87 WF ADMITTED VIA ER AFTER PRESENTING WITH FAMILY CO FALL WITH NEW ONSET LIMITED AMBULATION. PT HAS PMH OF DEMENTIA. XRAY REVEALED RIGHT HIP FRACTURE. PT ADMITTED FOR PAIN CONTROL, ORTHO CONSULT - Past Medical History Past Medical History: Alzheimers, Anxiety, Dementia, Depression, Diabetes, GERD , Hypertension - Past Surgical History Surgical History: Cholecystectomy, Hysterectomy - Family History Family Medical History: Diabetes Mellitus, Cancer, Coronary Artery Disease, Hypertension - Social History Type of Tobacco Use: None Does any household member use tobacco: No Alcohol Use: None Drug Use: None - Review of Systems Constitutional: Weakness Eyes: No Symptoms Reported ENT: No Symptoms Reported Respiratory: No Symptoms Reported Cardiovascular: No Symptoms Reported Gastrointestinal: No Symptoms Reported Genitourinary: Incontinence Musculoskeletal: Back Pain, Leg Pain Skin: No Symptoms Reported Neurological: Weakness, Confusion - Physical Exam Vital Signs: Temperature 97.6 F Pulse Rate [Right Radial] 76 Pulse Rate 76 Respiratory Rate 18 Blood Pressure [Right Arm] 149/69 Blood Pressure [Left Arm] 174/78 Blood Pressure 140/70 O2 Sat by Pulse Oximetry 95 Oriented: Not Oriented Eyes: Normal Ear: Normal Nose: Normal Throat: Normal Respiratory: RLL Diminished, LLL Diminished Cardiovascular: Normal : Normal Auscultation: Bowel Sounds: Normal Palpation: Normal Tenderness: Normal Skin: Bruising Musculoskeletal: Right, Hip, Motor Deficit, Instability Psychiatric: Anxiety Speech Pattern: Inappropriate - Assessment/Plan (1) Closed right hip fracture Status: Acute Plan: ADMIT, ORTHO CONSULT. PAIN CONTROL, RESUME HOME MEDS. BLOOD SUGAR CONTROL (2) Alzheimer's dementia Status: Acute (3) Diabetes mellitus Qualifiers: Diabetes mellitus type: type 2 Status: Acute (4) Essential hypertension Status: Acute
[2018-01-18] MEDS: DESYREL PO SCH (20:40)
[2018-01-18] MEDS: ARICEPT TAB 10 MG PO SCH (20:41)
[2018-01-18] MEDS: NORCO 5/325 MG TAB PO PRN (20:44)
[2018-01-19 04:56] LABS: ALANINE AMINOTRANSFERASE 23 Units/L (12-78); ALBUMIN 2.5 g/dL (3.4-5.0); ALKALINE PHOSPHATASE 58 Units/L (46-116); ASPARTATE AMINO TRANSFERASE 13 Units/L (15-37); BASOPHILS # (AUTO) 0.1 X10^3/uL (0.0-0.1); BASOPHILS % (AUTO) 0.9 % (0.2-1.0); BLOOD UREA NITROGEN 14 mg/dL (7-18); CALCIUM 7.9 mg/dL (8.5-10.1); CARBON DIOXIDE 26.3 mmol/L (21-32); CHLORIDE 105 mmol/L (98-107); COR CA(FOR HYPOALB) 9.1 mg/dL (8.5-10.1); CREATININE 1.05 mg/dL (0.55-1.02); EOSINOPHILS # (AUTO) 0.2 x10^3/uL (0.0-0.2); EOSINOPHILS % (AUTO) 3.7 % (0.9-2.9); HEMATOCRIT 27.9 % (36.0-47.0); HEMOGLOBIN 9.5 g/dL (12.0-16.0); LYMPHOCYTES # (AUTO) 1.5 X10^3/uL (1.3-2.9); LYMPHOCYTES % (AUTO) 23.4 % (21.0-51.0); MEAN CORPUSCULAR HEMOGLOBIN 31.8 pg (27.0-34.0); MEAN CORPUSCULAR VOLUME 93.6 fL (80.0-100.0); MEAN PLATELET VOLUME 7.9 fL (7.4-11.0); MONOCYTES # (AUTO) 0.6 x10^3/uL (0.3-0.8); MONOCYTES % (AUTO) 9.8 % (0.0-13.0); NEUTROPHILS # (AUTO) 3.8 x10^3/uL (2.2-4.8); NEUTROPHILS % (AUTO) 62.2 % (42.0-75.0); PLATELET COUNT 274 X10^3/uL (150.0-450.0); RED BLOOD COUNT 2.98 X10^6/uL (3.5-5.4); RED CELL DISTRIBUTION WIDTH 14.7 % (11.6-16.5); SODIUM 139 mmol/L (136-145); TOTAL PROTEIN 6.3 g/dL (6.4-8.2); WHITE BLOOD COUNT 6.2 X10^3/uL (3.6-10.0); eGFR BLACK RACES > 60 (>60); eGFR NON BLACK RACES 53 (>60)
[2018-01-19] MEDS ORDERED: K-RIDER 10 MEQ/NS 100 ML 10 MEQ/100 ML BAG IV PRN (05:17)
[2018-01-19] MEDS ORDERED: MAGNESIUM SULFATE 1 GM/100 mL PREMIX 1 GM/100 ML BAG IV PRN (05:17)
[2018-01-19] MEDS ORDERED: POTASSIUM CHLORIDE LIQ 20 MEQ UDC PO PRN (05:17)
[2018-01-19] MEDS ORDERED: POTASSIUM CHL 60 MEQ/NS 0.45% 500 ML IV PRN (05:17)
[2018-01-19] MEDS ORDERED: MAG-OX TAB PO PRN (05:17)
[2018-01-19] MEDS ORDERED: K-LYTE EFFERVESCENT PO PRN (05:17)
[2018-01-19] MEDS ORDERED: POTASSIUM CHL 40 MEQ/NS 0.45% 500 ML IV PRN (05:17)
[2018-01-19] MEDS: XANAX PO SCH ×3 (05:39→21:17)
[2018-01-19] MEDS: NORVASC TAB 10 MG PO SCH (09:03)
[2018-01-19] MEDS: LOTENSIN TAB 10 MG PO SCH (09:03)
[2018-01-19] MEDS: PROTONIX INJ 40 MG VIAL IVP SCH (09:05)
[2018-01-19] MEDS: NS 1000 ML 1,000 ML IV SCH ×2 (11:04→18:27)
[2018-01-19] MEDS: SNACK - Diabetic Appropriate PO SCH ×3 (11:04→20:50)
[2018-01-19 17:24] VITALS: BMI 20.3
--- NOTE | 2018-01-19 17:43 | PCM.PROG ---
Progress Note - Progress Note for Day of Date: 01/19/18 - Subjective Subjective: 87 WF ER ADMIT WITH FALL AND ACUTE RIGHT HIP FRACTURE. PT ADMITTED FOR PAIN CONTROL, ORTHO CONSULT. PT HAS HX OF DEMENTIA AND RESTING WELL THIS AM. DISCUSSED REHAB/HALFWAY PLACEMENT - Past Medical Family Social History Past Med/Fam/Surg Hx: No changes since H&P Allergies: Allergies cephalexin [From Keflex] Allergy (Verified 09/24/17 21:10) - Review of Systems ROS: No change since H&P - Vital Signs and I&O's Vital Signs: Temperature 100.9 F Pulse Rate [Left Brachial] 106 Pulse Rate [Right Radial] 76 Pulse Rate 76 Respiratory Rate 17 Blood Pressure [Right Arm] 149/69 Blood Pressure [Left Arm] 156/73 Blood Pressure 140/70 O2 Sat by Pulse Oximetry 93 Intake and Output: Intake & Output 01/17/18 01/18/18 01/19/18 01/20/18 10:59 11:59 11:59 11:59 Intake Total 2639 120 Output Total 1625 400 Balance 1014 -280 - Physical Exam Oriented: Not Oriented Eyes: Normal Ear: Normal Nose: Normal Throat: Normal Respiratory: Diminished Cardiovascular: Normal : Normal Auscultation: Bowel Sounds: Normal Tenderness: Normal Skin: Bruising Musculoskeletal: Right, Hip, Motor Deficit, Instability Psychiatric: Anxiety Speech Pattern: Clear - Laboratory and Diagnostics Result Diagrams: 01/19/18 04:10 01/19/18 04:10 Labs: Laboratory WBC 6.2 X10^3/uL (3.6-10.0) 01/19/18 04:10 RBC 2.98 X10^6/uL (3.5-5.4) L 01/19/18 04:10 Hgb 9.5 g/dL (12.0-16.0) L 01/19/18 04:10 Hct 27.9 % (36.0-47.0) L 01/19/18 04:10 MCV 93.6 fL (80.0-100.0) 01/19/18 04:10 MCH 31.8 pg (27.0-34.0) 01/19/18 04:10 MCHC 34.0 g/dL (33.0-35.0) 01/19/18 04:10 RDW 14.7 % (11.6-16.5) 01/19/18 04:10 Plt Count 274 X10^3/uL (150.0-450.0) 01/19/18 04:10 MPV 7.9 fL (7.4-11.0) 01/19/18 04:10 Neut % 62.2 % (42.0-75.0) 01/19/18 04:10 Lymph % 23.4 % (21.0-51.0) 01/19/18 04:10 [place] % 9.8 % (0.0-13.0) 01/19/18 04:10 Eos % 3.7 % (0.9-2.9) H 01/19/18 04:10 Baso % 0.9 % (0.2-1.0) 01/19/18 04:10 Neut # 3.8 x10^3/uL (2.2-4.8) 01/19/18 04:10 Lymph # 1.5 X10^3/uL (1.3-2.9) 01/19/18 04:10 [place] # 0.6 x10^3/uL (0.3-0.8) 01/19/18 04:10 Eos # 0.2 x10^3/uL (0.0-0.2) 01/19/18 04:10 Baso # 0.1 X10^3/uL (0.0-0.1) 01/19/18 04:10 Absolute Nucleated RBC 0.1 /100WBC 01/19/18 04:10 INR Target Range - 01/17/18 16:35 INR 1.09 (0.8-1.3) 01/17/18 16:35 PTT 26.4 SECONDS (22.9-36.5) 01/17/18 16:35 PTT Comment - 01/17/18 16:35 Sodium 139 mmol/L (136-145) 01/19/18 04:10 Corrected Sodium TNP 01/19/18 04:10 Potassium 3.5 mmol/L (3.5-5.1) 01/19/18 04:10 Chloride 105 mmol/L (98-107) 01/19/18 04:10 Carbon Dioxide 26.3 mmol/L (21-32) 01/19/18 04:10 BUN 14 mg/dL (7-18) 01/19/18 04:10 Creatinine 1.05 mg/dL (0.55-1.02) H 01/19/18 04:10 Est GFR (MDRD) Af Amer > 60 (>60) 01/19/18 04:10 Est GFR (MDRD) Non-Af 53 (>60) L 01/19/18 04:10 Glucose 106 mg/dL (65-99) H 01/19/18 04:10 POC Glucose (mg/dL) 103 mg/dL (65-99) H 01/19/18 16:51 Calcium 7.9 mg/dL (8.5-10.1) L 01/19/18 04:10 Corrected Calcium 9.1 mg/dL (8.5-10.1) 01/19/18 04:10 Magnesium 1.5 mg/dL (1.7-2.9) L 01/19/18 04:10 Total Bilirubin 0.30 mg/dL (0.2-1.0) 01/19/18 04:10 AST 13 Units/L (15-37) L 01/19/18 04:10 ALT 23 Units/L (12-78) 01/19/18 04:10 Alkaline Phosphatase 58 Units/L (46-116) 01/19/18 04:10 Total Protein 6.3 g/dL (6.4-8.2) L 01/19/18 04:10 Albumin 2.5 g/dL (3.4-5.0) L 01/19/18 04:10 Globulin 3.8 g/dL (2.5-4.5) 01/19/18 04:10 Albumin/Globulin Ratio 0.7 Ratio (1.1-2.1) L 01/19/18 04:10 Specimen Type Catherized urine 01/17/18 18:01 Urine Color Yellow (YELLOW) 01/17/18 18:01 Urine Appearance Hazy (CLEAR) 01/17/18 18:01 Urine pH 5.0 (5.0 - 8.0) 01/17/18 18:01 Ur Specific [place] 1.020 (1.000-1.030) 01/17/18 18:01 Urine Protein 2+ (NEGATIVE) 01/17/18 18:01 Urine Glucose (UA) Negative (NEGATIVE) 01/17/18 18: Urine Ketones 1+ (NEGATIVE) 01/17/18 18:01 Urine Occult Blood 5+ (NEGATIVE) 01/17/18 18: Urine Nitrite Negative (NEGATIVE) 01/17/18 18: Urine Bilirubin Negative (NEGATIVE) 01/17/18 18:01 Urine Urobilinogen Normal (NORMAL) 01/17/18 18:01 Ur Leukocyte Esterase 2+ (NEGATIVE) 01/17/18 18: Urine RBC 01 - 03 /HPF (NONE SEEN) 01/17/18 18: Urine WBC 02 - 05 /HPF (NONE SEEN) 01/17/18 18:01 Ur Squamous Epith Cells Moderate /HPF (NEGATIVE) 01/17/18 18: Amorphous Sediment 2+ /HPF (NEGATIVE) 01/17/18 18: Urine Bacteria Negative /HPF (NEGATIVE) 01/17/18 18: Hyaline Casts Few /LPF (NEGATIVE) 01/17/18 18: Fine Granular Casts Rare /LPF (NEGATIVE) 01/17/18 18: Ur Culture Indicated? No/not indicated 01/17/18 18:01 - Plan (1) Closed right hip fracture Status: Acute Plan: ORTHO CONSULT. PAIN CONTROL, RESUME HOME MEDS. BLOOD SUGAR CONTROL (2) Alzheimer's dementia Status: Acute Plan: RESUME HOME MEDS, SUPPORTIVE CARE (3) Diabetes mellitus Status: Acute Qualifiers: Diabetes mellitus type: type 2 (4) Essential hypertension Status: Acute
[2018-01-19] MEDS: NORCO 5/325 MG TAB PO PRN (20:32)
[2018-01-19] MEDS: MILK OF MAGNESIA PO SCH (20:32)
[2018-01-19] MEDS: DESYREL PO SCH (20:33)
[2018-01-19] MEDS: ARICEPT TAB 10 MG PO SCH (20:35)
[2018-01-19] MEDS ORDERED: COLACE CAP 100 MG PO SCH (21:00)
[2018-01-20] MEDS: NS 1000 ML 1,000 ML IV SCH ×2 (01:06→14:01)
[2018-01-20 04:38] LABS: BASOPHILS % (AUTO) 0.6 % (0.2-1.0); EOSINOPHILS % (AUTO) 0.1 % (0.9-2.9); HEMATOCRIT 28.2 % (36.0-47.0); HEMOGLOBIN 9.5 g/dL (12.0-16.0); LYMPHOCYTES % (AUTO) 12.3 % (21.0-51.0); MEAN CORPUSCULAR HEMOGLOBIN 31.2 pg (27.0-34.0); MEAN CORPUSCULAR HGB CONC 33.8 g/dL (33.0-35.0); MEAN CORPUSCULAR VOLUME 92.5 fL (80.0-100.0); MEAN PLATELET VOLUME 7.5 fL (7.4-11.0); MONOCYTES # (AUTO) 0.5 x10^3/uL (0.3-0.8); MONOCYTES % (AUTO) 5.9 % (0.0-13.0); NEUTROPHILS # (AUTO) 6.6 x10^3/uL (2.2-4.8); NEUTROPHILS % (AUTO) 81.1 % (42.0-75.0); PLATELET COUNT 274 X10^3/uL (150.0-450.0); RED BLOOD COUNT 3.05 X10^6/uL (3.5-5.4); RED CELL DISTRIBUTION WIDTH 14.2 % (11.6-16.5); WHITE BLOOD COUNT 8.1 X10^3/uL (3.6-10.0)
[2018-01-20 04:46] LABS: ALBUMIN 2.7 g/dL (3.4-5.0); CALCIUM 8.1 mg/dL (8.5-10.1); CARBON DIOXIDE 24.6 mmol/L (21-32); COR CA(FOR HYPOALB) 9.1 mg/dL (8.5-10.1); CREATININE 1.8 mg/dL (0.55-1.02); TOTAL PROTEIN 6.7 g/dL (6.4-8.2)
[2018-01-20] MEDS: XANAX PO SCH ×2 (05:16→13:23)
[2018-01-20] MEDS: PROTONIX INJ 40 MG VIAL IVP SCH (08:16)
[2018-01-20] MEDS: MILK OF MAGNESIA PO SCH (08:58)
[2018-01-20] MEDS: NORVASC TAB 10 MG PO SCH (08:58)
[2018-01-20] MEDS: LOTENSIN TAB 10 MG PO SCH (08:58)
[2018-01-20 12:43] VITALS: BP 128/60
== END 2018-01-20 15:40 | disposition home or self-care (01) | DRG 536 ==
LOC: ER 15:07 → MED/SURG 18:24
PROVIDERS: ADMIT Internal Medicine; ATTEND Internal Medicine
DX: S72.091A Other fracture of head and neck of right femur, initial encounter for closed fracture (principal); W18.39XA Other fall on same level, initial encounter; F41.8 Other specified anxiety disorders; M97.01XA Periprosthetic fracture around internal prosthetic right hip joint, initial encounter; E11.65 Type 2 diabetes mellitus with hyperglycemia; F32.89 Other specified depressive episodes; I10 Essential (primary) hypertension; F02.81 Dementia in other diseases classified elsewhere, unspecified severity, with behavioral disturbance; G30.8 Other Alzheimer's disease
CPT/HCPCS: 36415; 51702; 71045; 72192; 73501; 80053; 81001; 83735; 85025; 85610; 85730; 93005; 93010; 94760; 96365; 96374; 99284; A4216; A4222; C9113; J2270

== ENCOUNTER 2019-02-22 10:09 | Observation (INO) ==
[2019-02-22] MEDS ORDERED: D50W ABBOJECT SYR IV ONE (10:18)
--- NOTE | 2019-02-22 10:18 | DR.GENAD ---
HPI Time Seen Time Seen by Provider: 02/22/19 10:12 Complaint/Symptoms Chief Complaint Doctors Comments: Patient presented to the ED via EMS with a history of hypoglycemia. Upon arrival her glucose was 36 and received 1/2amp of D50. Glucose upon arrival to ED is 36mg/dl. On last night EMS reported that they went to her house for low blood glucose, received 1/2amp D50. PMH PMH Past Medical History: Alzheimers, Anxiety, Dementia, Depression, Diabetes, GERD and Hypertension Surgical History: Cholecystectomy and Hysterectomy Family History Family Medical History: Diabetes Mellitus, Cancer, Coronary Artery Disease and Hypertension Social History Do you use any recreational Drugs:: No ROS Review of Systems Constitutional: Weakness and Irritable Eyes: No Symptoms Reported ENTM: No Symptoms Reported Respiratoy: No Symptoms Reported Cardiovascular: No Symptoms Reported Gastrointestinal/Abdominal: No Symptoms Reported Genitourinary: No Symptoms Reported Neurological: Emotional Problems and Weakness Musculoskeletal: No Symptoms Reported Integumentary: No Symptoms Reported Hematologic/Lymphatic: No Symptoms Reported Endocrine: See HPI Psychiatric: Anxiety All Other Systems: Reviewed and Negative PE Vital Signs Vitals: Temperature 97.8 F Pulse Rate [Right Brachial] 55 Pulse Rate 53 Respiratory Rate 18 Blood Pressure [Right Arm] 147/69 Blood Pressure [Left Arm] 138/68 Blood Pressure 151/67 O2 Sat by Pulse Oximetry 99 General Limitations: Altered Mental Status and Physical Limitation General Appearance: Alert and In No Apparent Distress Head Head Exam: Normal Inspection, Atraumatic and Normocephalic Eyes Eye exam: Normal Appearance, PERRL and EOMI ENT ENT Exam: Normal Exam and Normal Oropharynx External Ear Exam: Normal External Inspection TM/Canal Exam: Bilateral: Normal Nose Exam: Normal Nose Exam Mouth Exam: Normal Inspection Throat Exam: Normal Inspection Neck Neck Exam: Normal Inspection and Full ROM Chest Chest Inspection: Normal Inspection and Symmetric Chest Wall Rise Respiratory Respiratory Exam: Normal Lung Sounds Bilat Respiratory Exam: Bilateral: Clear to Auscultation Cardiovascular Cardiovascular Exam: Regular Rate and Normal Rhythm Abdominal Exam Abdominal Exam: Normal Inspection, Normal Bowel Sounds and Soft Extremities Extremities Exam: Normal Inspection Back Back Exam: Normal Inspection Neurologic Neurological Exam: Alert Psychiatric Psychiatric Exam: Agitated and Flat Affect Skin Skin Exam: Warm, Dry and Intact MDM Differential Diagnosis Differential Diagnosis: Dementia, Dehydration, Hypoglycemia ROR Labs Reviewed Result Diagrams: 02/22/19 10:25 02/22/19 13:08 Laboratory: WBC 7.4 X10^3/uL (3.6-10.0) 02/22/19 10:25 RBC 3.09 X10^6/uL (3.5-5.4) L 02/22/19 10:25 Hgb 10.3 g/dL (12.0-16.0) L 02/22/19 10:25 Hct 30.9 % (36.0-47.0) L 02/22/19 10:25 MCV 100.0 fL (80.0-100.0) 02/22/19 10:25 MCH 33.3 pg (27.0-34.0) 02/22/19 10:25 MCHC 33.3 g/dL (33.0-35.0) 02/22/19 10:25 RDW 14.9 % (11.6-16.5) 02/22/19 10:25 Plt Count 198 X10^3/uL (150.0-450.0) 02/22/19 10:25 MPV 9.6 fL (7.4-11.0) 02/22/19 10:25 Neut % (Auto) 83.1 % (42.0-75.0) H 02/22/19 10:25 Lymph % (Auto) 10.6 % (21.0-51.0) L 02/22/19 10:25 [place] % (Auto) 5.1 % (0.0-13.0) 02/22/19 10:25 Eos % (Auto) 0.4 % (0.9-2.9) L 02/22/19 10:25 Baso % (Auto) 0.8 % (0.2-1.0) 02/22/19 10:25 Neut # (Auto) 6.1 x10^3/uL (2.2-4.8) H 02/22/19 10:25 Lymph # (Auto) 0.8 X10^3/uL (1.3-2.9) L 02/22/19 10:25 [place] # (Auto) 0.4 x10^3/uL (0.3-0.8) 02/22/19 10:25 Eos # (Auto) 0.0 x10^3/uL (0.0-0.2) 02/22/19 10:25 Baso # (Auto) 0.1 X10^3/uL (0.0-0.1) 02/22/19 10:25 Absolute Nucleated RBC 0.1 /100WBC 02/22/19 10:25 Sample Site Rr 02/22/19 10:53 ABG pH 7.500 (7.35-7.45) H 02/22/19 10:53 ABG pCO2 37.0 mmHg (35.0-45.0) 02/22/19 10:53 ABG pO2 92.0 mmHg (80.0-100.0) 02/22/19 10:53 ABG HCO3 28.9 mmol/L (22-26) H 02/22/19 10:53 ABG O2 Saturation 98.0 % (90-100) 02/22/19 10:53 ABG Base Excess 5.5 mmol/L (-2.0-2.0) H 02/22/19 10:53 Morris Test Pos 02/22/19 10:53 A-a Gradient 11.0 mmHg 02/22/19 10:53 FiO2 21.0 02/22/19 10:53 Blood Gas Comments Pt jackelin well 02/22/19 10:53 Sodium 145 mmol/L (136-145) 02/22/19 10:25 Corrected Sodium TNP 02/22/19 10:25 Potassium 4.9 mmol/L (3.5-5.1) 02/22/19 10:25 Chloride 107 mmol/L (98-107) 02/22/19 10:25 Carbon Dioxide 26.9 mmol/L (21-32) 02/22/19 10:25 BUN 33 mg/dL (7-18) H 02/22/19 10:25 Creatinine 1.41 mg/dL (0.55-1.02) H 02/22/19 10:25 Est GFR (MDRD) Af Amer 45 (>60) L 02/22/19 10:25 Est GFR (MDRD) Non-Af 37 (>60) L 02/22/19 10:25 Glucose 55 mg/dL (65-99) L 02/22/19 13:08 POC Glucose (mg/dL) 134 mg/dL (65-99) H 02/22/19 16:49 Hemoglobin A1c 5.5 % 02/22/19 10:25 Lactic Acid 2.0 mmol/L (0.4-2.0) 02/22/19 10:25 Calcium 9.3 mg/dL (8.5-10.1) 02/22/19 10:25 Corrected Calcium 10.0 mg/dL (8.5-10.1) 02/22/19 10:25 Total Bilirubin 0.20 mg/dL (0.2-1.0) 02/22/19 10:25 AST 27 Units/L (15-37) 02/22/19 10:25 ALT 31 Units/L (12-78) 02/22/19 10:25 Alkaline Phosphatase 52 Units/L (46-116) 02/22/19 10:25 Total Protein 6.6 g/dL (6.4-8.2) 02/22/19 10:25 Albumin 3.1 g/dL (3.4-5.0) L 02/22/19 10:25 Globulin 3.5 g/dL (2.5-4.5) 02/22/19 10:25 Albumin/Globulin Ratio 0.9 Ratio (1.1-2.1) L 02/22/19 10:25 Specimen Type Catherized urine 02/22/19 11:37 Urine Color Yellow (YELLOW) 02/22/19 11:37 Urine Appearance Cloudy (CLEAR) 02/22/19 11:37 Urine pH 7.0 (5.0 - 8.0) 02/22/19 11:37 Ur Specific [place] 1.010 (1.000-1.030) 02/22/19 11:37 Urine Protein 2+ (NEGATIVE) 02/22/19 11:37 Urine Glucose (UA) Negative (NEGATIVE) 02/22/19 11:37 Urine Ketones Negative (NEGATIVE) 02/22/19 11:37 Urine Occult Blood 4+ (NEGATIVE) 02/22/19 11:37 Urine Nitrite Positive (NEGATIVE) 02/22/19 11:37 Urine Bilirubin Negative (NEGATIVE) 02/22/19 11:37 Urine Urobilinogen Normal (NORMAL) 02/22/19 11:37 Ur Leukocyte Esterase 2+ (NEGATIVE) 02/22/19 11:37 Urine RBC 3-5 /HPF (NONE SEEN) 02/22/19 11:37 Urine WBC 10-20 /HPF (NONE SEEN) 02/22/19 11:37 Ur Squamous Epith Cells Negative /HPF (NEGATIVE) 02/22/19 11:37 Urine Bacteria 4+ /HPF (NEGATIVE) 02/22/19 11:37 Urine Mucus Few /HPF (NEGATIVE) 02/22/19 11:37 Ur Culture Indicated? No/not indicated 02/22/19 11:37 Diagnosis Discharge Problem: Urinary tract infection, Hypoglycemia
[2019-02-22] MEDS ORDERED: D50W ABBOJECT SYR ONE ×2 (10:23→13:07)
[2019-02-22 10:35] LABS: BILIRUBIN,URINE NEGATIVE (NEGATIVE); BLOOD/HEMOGLOBIN,URINE 4+ (NEGATIVE); GLUCOSE, URINE NEGATIVE (NEGATIVE); KETONES,URINE NEGATIVE (NEGATIVE); LEUKOCYTE ESTERASE ,URINE 1+ (NEGATIVE); NITRITES,URINE POSITIVE (NEGATIVE); PH,URINE 6.5 (5.0 - 8.0); PROTEIN,URINE 2+ (NEGATIVE); UROBILINOGEN,URINE NORMAL (NORMAL)
[2019-02-22 10:36] LABS: BASOPHILS # (AUTO) 0.1 X10^3/uL (0.0-0.1); BASOPHILS % (AUTO) 0.8 % (0.2-1.0); EOSINOPHILS % (AUTO) 0.4 % (0.9-2.9); HEMATOCRIT 30.9 % (36.0-47.0); HEMOGLOBIN 10.3 g/dL (12.0-16.0); LYMPHOCYTES # (AUTO) 0.8 X10^3/uL (1.3-2.9); LYMPHOCYTES % (AUTO) 10.6 % (21.0-51.0); MEAN CORPUSCULAR HEMOGLOBIN 33.3 pg (27.0-34.0); MEAN CORPUSCULAR HGB CONC 33.3 g/dL (33.0-35.0); MEAN PLATELET VOLUME 9.6 fL (7.4-11.0); MONOCYTES # (AUTO) 0.4 x10^3/uL (0.3-0.8); MONOCYTES % (AUTO) 5.1 % (0.0-13.0); NEUTROPHILS # (AUTO) 6.1 x10^3/uL (2.2-4.8); NEUTROPHILS % (AUTO) 83.1 % (42.0-75.0); PLATELET COUNT 198 X10^3/uL (150.0-450.0); RED BLOOD COUNT 3.09 X10^6/uL (3.5-5.4); RED CELL DISTRIBUTION WIDTH 14.9 % (11.6-16.5); WHITE BLOOD COUNT 7.4 X10^3/uL (3.6-10.0)
[2019-02-22 10:47] LABS: APPEARANCE,URINE CLOUDY (CLEAR); BACTERIA,URINE 4+ /HPF (NEGATIVE); COLOR,URINE YELLOW (YELLOW); MUCUS,URINE FEW /HPF (NEGATIVE); SQUAMOUS EPITHELIAL CELL,UR NEGATIVE /HPF (NEGATIVE)
[2019-02-22 10:50] LABS: BLOOD UREA NITROGEN 33 mg/dL (7-18); CALCIUM 9.3 mg/dL (8.5-10.1); CARBON DIOXIDE 26.9 mmol/L (21-32); CHLORIDE 107 mmol/L (98-107); CREATININE 1.41 mg/dL (0.55-1.02); SODIUM 145 mmol/L (136-145); eGFR NON BLACK RACES 37 (>60)
[2019-02-22] MEDS ORDERED: ROCEPHIN VIAL 1 GRAM IVP ONE (10:52)
[2019-02-22] MEDS ORDERED: CIPRO IV 400 MG PREMIX* 400 MG/200 ML IV.SOLN. IV ONE (10:53)
[2019-02-22 10:54] LABS: ALANINE AMINOTRANSFERASE 31 Units/L (12-78); ALBUMIN 3.1 g/dL (3.4-5.0); ALKALINE PHOSPHATASE 52 Units/L (46-116); ASPARTATE AMINO TRANSFERASE 27 Units/L (15-37); TOTAL PROTEIN 6.6 g/dL (6.4-8.2)
[2019-02-22 10:55] LABS: ABG BASE EXCESS 5.5 mmol/L (-2.0-2.0); ABG HCO3 28.9 mmol/L (22-26)
[2019-02-22] MEDS ORDERED: CIPRO IV 400 MG PREMIX* 400 MG/200 ML IV.SOLN. ONE (10:55)
[2019-02-22 10:56] LABS: ABG ALLEN TEST POS
[2019-02-22] MEDS: D5W 1000 ML IV 1,000 ML IV SCH ×2 (11:00→18:42)
[2019-02-22 11:41] LABS: HEMOGLOBIN A1C 5.5 %
[2019-02-22 11:45] LABS: BILIRUBIN,URINE NEGATIVE (NEGATIVE); BLOOD/HEMOGLOBIN,URINE 4+ (NEGATIVE); GLUCOSE, URINE NEGATIVE (NEGATIVE); KETONES,URINE NEGATIVE (NEGATIVE); LEUKOCYTE ESTERASE ,URINE 2+ (NEGATIVE); NITRITES,URINE POSITIVE (NEGATIVE); PROTEIN,URINE 2+ (NEGATIVE); UROBILINOGEN,URINE NORMAL (NORMAL)
[2019-02-22 11:49] LABS: APPEARANCE,URINE CLOUDY (CLEAR); COLOR,URINE YELLOW (YELLOW); SQUAMOUS EPITHELIAL CELL,UR NEGATIVE /HPF (NEGATIVE)
[2019-02-22 11:50] LABS: BACTERIA,URINE 4+ /HPF (NEGATIVE); MUCUS,URINE FEW /HPF (NEGATIVE)
[2019-02-22] MEDS ORDERED: NS 1000 ML 1,000 ML IV SCH (13:00)
[2019-02-22] MEDS ORDERED: DEXTROSE 25% IV ONE (13:17)
--- NOTE | 2019-02-22 13:32 | RAD ---
History: Hypoglycemia Study: AP chest Comparison: January 17, 2018 Findings: The lungs are grossly clear and the heart size is normal. There are degenerative changes of the glenohumeral joints. Impression: No acute cardiopulmonary disease Reported By:
--- NOTE | 2019-02-22 13:33 | RAD ---
History: Hypoglycemia Study: KUB Findings: There are cholecystectomy clips. There is a right hip prosthesis. Visualized bowel gas is unremarkable. There is severe degenerative osteophytes in the lumbar spine. Impression: No acute disease Reported By:
[2019-02-22 14:22] VITALS: BMI 17.4
[2019-02-22] MEDS ORDERED: QUETIAPINE 50 MG PO SCH (19:01)
[2019-02-22] MEDS ORDERED: LOMOTIL PO PRN (19:01)
[2019-02-22] MEDS ORDERED: TESSALON PERLES PO PRN (19:01)
[2019-02-22] MEDS ORDERED: GLUCOPHAGE ONE (19:49)
[2019-02-22] MEDS: NORVASC TAB 10 MG PO SCH (20:00)
[2019-02-22] MEDS ORDERED: SNACK - Diabetic Appropriate PO SCH (20:00)
[2019-02-22] MEDS: GLUCOPHAGE PO SCH (20:02)
[2019-02-22] MEDS: XANAX PO SCH (20:03)
[2019-02-22] MEDS: CIPRO IV 400 MG PREMIX* 400 MG/200 ML IV.SOLN. IV SCH (20:04)
[2019-02-22] MEDS: ARICEPT TAB 10 MG PO SCH (20:04)
[2019-02-22] MEDS: RESTORIL CAP 30 MG PO SCH (20:04)
[2019-02-22] MEDS: PATIENT'S HOME MEDICATION (Diclofenac Sodium [Diclofenac Sodium] 75 MG) PO SCH (20:04)
[2019-02-23] MEDS: NORCO 5/325 MG TAB PO PRN ×2 (01:13→22:50)
[2019-02-23] MEDS: OTBS NS XX SCH ×6 (01:45→20:53)
[2019-02-23] MEDS: D5W 1000 ML IV 1,000 ML IV SCH (03:01)
[2019-02-23 05:47] LABS: BASOPHILS % (AUTO) 0.9 % (0.2-1.0); EOSINOPHILS # (AUTO) 0.2 x10^3/uL (0.0-0.2); EOSINOPHILS % (AUTO) 3.8 % (0.9-2.9); HEMATOCRIT 27.8 % (36.0-47.0); HEMOGLOBIN 9.4 g/dL (12.0-16.0); LYMPHOCYTES # (AUTO) 1.8 X10^3/uL (1.3-2.9); LYMPHOCYTES % (AUTO) 32.6 % (21.0-51.0); MEAN CORPUSCULAR HEMOGLOBIN 34.6 pg (27.0-34.0); MEAN CORPUSCULAR HGB CONC 33.8 g/dL (33.0-35.0); MEAN CORPUSCULAR VOLUME 102.2 fL (80.0-100.0); MEAN PLATELET VOLUME 9.2 fL (7.4-11.0); MONOCYTES # (AUTO) 0.4 x10^3/uL (0.3-0.8); MONOCYTES % (AUTO) 8.1 % (0.0-13.0); NEUTROPHILS % (AUTO) 54.6 % (42.0-75.0); PLATELET COUNT 170 X10^3/uL (150.0-450.0); RED BLOOD COUNT 2.72 X10^6/uL (3.5-5.4); RED CELL DISTRIBUTION WIDTH 14.8 % (11.6-16.5); WHITE BLOOD COUNT 5.5 X10^3/uL (3.6-10.0)
[2019-02-23 06:03] LABS: ALBUMIN 2.6 g/dL (3.4-5.0); CALCIUM 8.3 mg/dL (8.5-10.1); CARBON DIOXIDE 28.1 mmol/L (21-32); COR CA(FOR HYPOALB) 9.4 mg/dL (8.5-10.1); CREATININE 1.22 mg/dL (0.55-1.02); TOTAL PROTEIN 5.5 g/dL (6.4-8.2)
[2019-02-23] MEDS ORDERED: POTASSIUM CHL 60 MEQ/NS 0.45% 500 ML IV PRN (06:29)
[2019-02-23] MEDS ORDERED: K-DUR TAB 20 MEQ PO PRN (06:29)
[2019-02-23] MEDS ORDERED: K-RIDER 10 MEQ/NS 100 ML 10 MEQ/100 ML BAG IV PRN (06:29)
[2019-02-23] MEDS ORDERED: MICRO K EXTEN CAP 10 MEQ PO PRN (06:29)
[2019-02-23] MEDS ORDERED: POTASSIUM CHLORIDE LIQ 20 MEQ UDC PO PRN (06:29)
[2019-02-23] MEDS ORDERED: POTASSIUM CHL 40 MEQ/NS 0.45% 500 ML IV PRN (06:29)
[2019-02-23] MEDS ORDERED: KLOR-CON PO PRN (06:29)
[2019-02-23] MEDS: CIPRO IV 400 MG PREMIX* 400 MG/200 ML IV.SOLN. IV SCH ×2 (08:44→20:49)
[2019-02-23] MEDS ORDERED: JANUVIA PO SCH (09:00)
[2019-02-23] MEDS ORDERED: PATIENT'S HOME MEDICATION (Memantine [Namenda Xr] 28 MG) PO SCH (09:00)
[2019-02-23] MEDS: GLUCOPHAGE PO SCH ×2 (09:00→20:50)
[2019-02-23] MEDS: LOTENSIN TAB 10 MG PO SCH (09:00)
[2019-02-23] MEDS: PATIENT'S HOME MEDICATION (Diclofenac Sodium [Diclofenac Sodium] 75 MG) PO SCH ×2 (09:21→20:52)
[2019-02-23] MEDS ORDERED: GLUCOPHAGE ONE ×2 (10:12→20:23)
[2019-02-23] MEDS ORDERED: LR 1000 ML IV 1,000 ML ONE (10:15)
[2019-02-23] MEDS: PriLOSEC PO SCH (10:23)
[2019-02-23] MEDS: NORVASC TAB 10 MG PO SCH (10:23)
[2019-02-23] MEDS: XANAX PO SCH ×2 (10:23→20:50)
[2019-02-23] MEDS: ACTOS PO SCH (10:24)
[2019-02-23] MEDS ORDERED: MAGNESIUM SULFATE 1 GRAM/100 mL PREMIX 1 GM/100 ML BAG IV PRN (15:10)
[2019-02-23] MEDS: LOVENOX INJ 30 MG SYR SC SCH (18:19)
[2019-02-23] MEDS ORDERED: SNACK - Diabetic Appropriate PO SCH (20:00)
[2019-02-23] MEDS: RESTORIL CAP 30 MG PO SCH (20:50)
[2019-02-23] MEDS: ARICEPT TAB 10 MG PO SCH (20:52)
[2019-02-24] MEDS: OTBS NS XX SCH ×2 (02:00→06:23)
[2019-02-24 05:35] LABS: BASOPHILS # (AUTO) 0.1 X10^3/uL (0.0-0.1); BASOPHILS % (AUTO) 0.8 % (0.2-1.0); EOSINOPHILS # (AUTO) 0.1 x10^3/uL (0.0-0.2); EOSINOPHILS % (AUTO) 1.6 % (0.9-2.9); HEMATOCRIT 29.3 % (36.0-47.0); LYMPHOCYTES % (AUTO) 12.5 % (21.0-51.0); MEAN CORPUSCULAR HEMOGLOBIN 34.7 pg (27.0-34.0); MEAN CORPUSCULAR HGB CONC 34.1 g/dL (33.0-35.0); MEAN CORPUSCULAR VOLUME 101.8 fL (80.0-100.0); MEAN PLATELET VOLUME 9.5 fL (7.4-11.0); MONOCYTES # (AUTO) 0.6 x10^3/uL (0.3-0.8); MONOCYTES % (AUTO) 7.8 % (0.0-13.0); NEUTROPHILS # (AUTO) 5.9 x10^3/uL (2.2-4.8); NEUTROPHILS % (AUTO) 77.3 % (42.0-75.0); PLATELET COUNT 176 X10^3/uL (150.0-450.0); RED BLOOD COUNT 2.88 X10^6/uL (3.5-5.4); RED CELL DISTRIBUTION WIDTH 14.7 % (11.6-16.5); WHITE BLOOD COUNT 7.6 X10^3/uL (3.6-10.0)
[2019-02-24 05:45] LABS: ALBUMIN 2.6 g/dL (3.4-5.0); CALCIUM 8.4 mg/dL (8.5-10.1); CARBON DIOXIDE 27.8 mmol/L (21-32); COR CA(FOR HYPOALB) 9.5 mg/dL (8.5-10.1); CREATININE 1.66 mg/dL (0.55-1.02); TOTAL PROTEIN 5.6 g/dL (6.4-8.2)
[2019-02-24] MEDS: LOVENOX INJ 30 MG SYR SC SCH (08:26)
[2019-02-24] MEDS: XANAX PO SCH (08:27)
[2019-02-24] MEDS: NORVASC TAB 10 MG PO SCH (08:28)
[2019-02-24] MEDS: PriLOSEC PO SCH (08:28)
[2019-02-24] MEDS: LOTENSIN TAB 10 MG PO SCH (08:28)
[2019-02-24] MEDS: ACTOS PO SCH (08:29)
[2019-02-24] MEDS ORDERED: NS 500 ML IV 500 ML IV ONE (08:47)
[2019-02-24 12:19] VITALS: BP 101/55
== END 2019-02-24 12:10 | disposition home health service (06) ==
LOC: ER 10:09 → ICU 10:09 → MED/SURG 02-23 14:55
PROVIDERS: ADMIT Obstetrics & Gynecology Obstetrics; ATTEND Obstetrics & Gynecology Obstetrics
DX: K21.9 Gastro-esophageal reflux disease without esophagitis; I10 Essential (primary) hypertension; F41.8 Other specified anxiety disorders; E11.649 Type 2 diabetes mellitus with hypoglycemia without coma; B96.29 Other Escherichia coli [E. coli] as the cause of diseases classified elsewhere; R94.4 Abnormal results of kidney function studies; N39.0 Urinary tract infection, site not specified; E86.0 Dehydration
CPT/HCPCS: 36415; 36600; 51701; 51702; 71010; 71045; 74000; 74018; 80053; 81001; 82607; 82728; 82746; 82803; 82947; 83036; 83540; 83605; 83735; 84132; 84425; 84466; 85025; 87040; 87086; 87088; 87186; 93005; 96365; 96367; 96372; 96374; 96375; 99284; A4216; A4222; G0378; J0744; J1650; J3490; J7060; J7120